=== PATIENT | female | born 1970 | race Hispanic/Latino ===

== ENCOUNTER 2018-12-01 08:20 | Day surgery (SDC) | payer OTHER ==
[~2018-12-01] VITALS: Ht 157.5 cm; Wt 104.3 kg
[2018-12-01] MEDS ORDERED: SODIUM CHLORIDE 0.9% 1000ML 1,000 ML IV ONE (09:20)
[2018-12-01 09:23] VITALS: BP 116/70
[2018-12-01] MEDS ORDERED: HYDR12.530 PO (09:37)
[2018-12-01] MEDS ORDERED: METF-444 PO (09:37)
[2018-12-01] MEDS ORDERED: LOSA50TA64 PO (09:37)
[2018-12-01] MEDS ORDERED: PROPOFOL 10 MG/ML 20ML VIAL IV ONE ×3 (11:17→11:40)
[2018-12-01 11:30] VITALS: BP 122/74
[2018-12-01 11:35] VITALS: BP 130/82
[2018-12-01 11:40] VITALS: BP 124/86
[2018-12-01 11:45] VITALS: BP 136/81
[2018-12-01 11:50] VITALS: BP 136/86
== END 2018-12-01 12:10 | disposition home or self-care (01) ==
LOC: ENDO 08:20
PROVIDERS: ATTEND Surgery
DX: K29.60 Other gastritis without bleeding (principal); B96.81 Helicobacter pylori [H. pylori] as the cause of diseases classified elsewhere; K21.9 Gastro-esophageal reflux disease without esophagitis; I10 Essential (primary) hypertension; E11.9 Type 2 diabetes mellitus without complications; Z98.890 Other specified postprocedural states; Z79.899 Other long term (current) drug therapy; Z79.84 Long term (current) use of oral hypoglycemic drugs; E66.01 Morbid (severe) obesity due to excess calories; Z98.84 Bariatric surgery status; Z68.41 Body mass index [BMI] 40.0-44.9, adult
CPT/HCPCS: 43239; 81025; 82948; 88305; A4606; J2704; J7030